=== PATIENT | female | born 1990 | race Caucasian/White ===

== ENCOUNTER 2024-03-17 08:23 | Day surgery (SDC) | payer OTHER ==
[2024-03-17] MEDS ORDERED: Acetaminophen 500 MG TAB ONE (08:32)
[2024-03-17] MEDS: Acetaminophen 500 MG TAB PO SCH (08:33)
[2024-03-17] MEDS: Iron Sucrose Complex 500 MG in Sodium Chloride 0.9% 250 ML 250 ML IVPB SCH (09:05)
[2024-03-17 13:45] VITALS: BP 107/59; TEMP 98
== END 2024-03-17 13:51 | disposition home or self-care (01) ==
LOC: ONC/OP 08:23
PROVIDERS: ATTEND Advanced Practice Midwife
DX: O99.019 Anemia complicating pregnancy, unspecified trimester (principal); Z3A.00 Weeks of gestation of pregnancy not specified
CPT/HCPCS: 96365; 96366; J1756; J7050